=== PATIENT | female | born 1990 | race African-American/Black ===

== ENCOUNTER 2025-02-26 14:56 | Emergency (ER) | payer MEDICAID ==
[~2025-02-26] VITALS: Ht 162.6 cm; Wt 133.0 kg
[~2025-02-26 14:56] MED LIST: ALBU2.5V13 NEB; PREN-88 PO
[2025-02-26 15:09] VITALS: O2SAT 99
[2025-02-26 19:34] LABS: CLARITY URINE CLOUDY (CLEAR); COLOR URINE DARK YELLOW (YELLOW); GLUCOSE URINE NEGATIVE (NEGATIVE); KETONES URINE NEGATIVE (NEGATIVE); LEUKOCYTE ESTERASE URINE 2+ (NEGATIVE); NITRITE URINE NEGATIVE (NEGATIVE); OCCULT BLOOD URINE NEGATIVE (NEGATIVE); PH URINE 5.5 (4.5-8.0); PROTEIN URINE 1+ (NEGATIVE); SPECIFIC GRAVITY URINE 1.024 (1.005-1.030); UROBILINOGEN URINE 1.0 E.U./dL (0.2-1.0)
[2025-02-26 20:16] LABS: SQUAMOUS EPITHELIAL CELL URINE 3+ /lpf (RARE/1+)
[2025-02-26 20:17] LABS: BACTERIA URINE 2+; WBC URINE 15-25 /hpf (0-2)
[2025-02-26 20:57] LABS: BASOPHILS % 0.2 % (0.0-2.0); EOSINOPHILS % 3.7 % (0.0-5.0); HEMATOCRIT. 34.5 % (36.0-48.0); HEMOGLOBIN. 11.1 g/dL (12.0-16.0); LYMPHOCYTES % 43.9 % (20.0-50.0); MEAN PLATELET VOLUME 8.7 fl (7.4-10.4); MONOCYTES % 9.1 % (2.0-8.0); NEUTROPHILS % 43.1 % (40.0-76.0); PLATELET 191 x1000/uL (130-400); RED BLOOD CELL COUNT 4.15 mill/uL (4.2-5.4); RED CELL DISTRIBUTION WIDTH 15.9 % (11.6-14.6)
[2025-02-26 21:14] LABS: CREATININE 0.8 mg/dL (0.6-1.0); UREA NITROGEN BLOOD 6 mg/dL (9-23)
[2025-02-26 21:27] LABS: HCG SCREEN NEGATIVE
[2025-02-26] MEDS: KETOROLAC 15MG/ML VIAL IM ONE (22:43)
[2025-02-26] MEDS ORDERED: AMOX1TAB16 MT (23:11)
[2025-02-26 23:48] VITALS: BP 184/115; PULSE 84; RESP 16; TEMP 36.9; O2SAT 99
[2025-02-26] MEDS: IOHEXOL-300 100 ML BOTTLE ONE (23:59)
== END 2025-02-27 00:01 | disposition home or self-care (01) ==
LOC: ER 14:56
DX: R59.0 Localized enlarged lymph nodes (principal); I10 Essential (primary) hypertension; J45.909 Unspecified asthma, uncomplicated; Z79.899 Other long term (current) drug therapy
CPT/HCPCS: 99285; 70491; 80048; 81003; 81025; 84703; 85025; 87086; 36415; 96372; J1885; Q9967